=== PATIENT | female | born 1965 | race Caucasian/White ===

== ENCOUNTER 2018-07-24 11:32 | Emergency (ER) | payer OTHER ==
[~2018-07-24] VITALS: Ht 165.1 cm; Wt 61.2 kg
[~2018-07-24 11:32] MED LIST: DOCU-109 PO; FAMO20TA5 PO; MULT-98 PO; OXYC1TAB7 PO; SERT100T PO
[2018-07-24] MEDS ORDERED: IV NORMAL SALINE 1000ML BAG 1,000 ML IV ONE (12:00)
[2018-07-24 12:32] LABS: BASO % 1 % (0-3); EOS # 0.4 x10^3/uL (0.0-0.7); EOS % 8 % (0-3); HEMATOCRIT 35.8 % (36.0-47.0); HEMOGLOBIN 12.1 g/dL (12.0-15.5); LYMPH # 0.9 x10^3/uL (1.0-4.8); LYMPH % 21 % (24-48); MEAN CORPUSCULAR HEMOGLOBIN 34 pg (25-35); MEAN CORPUSCULAR HGB CONC 34 g/dL (31-37); MEAN CORPUSCULAR VOLUME 100 fL (79-100); MONO # 0.4 x10^3/uL (0.0-1.1); MONO % 8 % (0-9); NEUT # 2.7 x10^3uL (1.8-7.7); NEUT % 62 % (31-73); PLATELET COUNT 250 x10^3/uL (140-400); RED CELL DISTRIBUTION WIDTH 13.1 % (11.5-14.5); WHITE BLOOD COUNT 4.4 x10^3/uL (4.0-11.0)
--- NOTE | 2018-07-24 12:39 | PHYS DOC ---
Past Medical History Past Medical History: Depression, Other Additional Past Medical Histor: COLON OBST (MONICA MERCADO TRANSVERSE ABDOMINAL MUSCLE SURGEON) Past Surgical History: Appendectomy, Hysterectomy, Other Additional Past Surgical Histo: COLON RESECTION D/T OBST (MONICA MERCADO APRN) Alcohol Use: Occasionally Drug Use: None (MONICA MERCADO APRN) Adult General Chief Complaint Chief Complaint: ABDOMINAL PAIN HPI HPI Patient is a 52 year old female who presents with status post hysterectomy times one week ago. Hysterectomy was done at and it was laparoscopic. Patient states that she is having some numbness over on the left mid to lower side rib below the umbilicus area and pain with movement. Patient states the pain is an achy kind of pain and she rates her pain a 2 out of 10. She refused any pain medicine this time. Patient denies fever, constipation, diarrhea, vomiting, and nausea, dysuria. (MONICA MERCADO APRN) Review of Systems Review of Systems Constitutional: Denies fever or chills [] Eyes: Denies change in visual acuity, redness, or eye pain [] HENT: Denies nasal congestion or sore throat [] Respiratory: Denies cough or shortness of breath [] Cardiovascular: No additional information not addressed in HPI [] GI: abdominal pain with movement, slight numbness to the left lower side. Denies nausea, vomiting, bloody stools or diarrhea [] : Denies dysuria or hematuria [] Musculoskeletal: Denies back pain or joint pain [] Integument: Denies rash or skin lesions [] Neurologic: Denies headache, focal weakness or sensory changes [] Endocrine: Denies polyuria or polydipsia [] All other systems were reviewed and found to be within normal limits, except as documented in this note. (MONICA MERCADO APRN) Current Medications Current Medications Current Medications Medications (Trade) Dose Ordered Sig/Digna Start Time Stop Time Status Last Admin Dose Admin Info (CONTRAST GIVEN -- Rx MONITORING) 1 each PRN DAILY PRN 07/24/18 13:00 07/24/18 14:35 DC Iohexol (Omnipaque 300 Mg/ml) 75 ml 1X ONCE 07/24/18 12:45 07/24/18 12:46 DC 07/24/18 12:55 75 ML Sodium Chloride 1,000 ml @ 1,000 mls/hr 1X ONCE 07/24/18 12:00 07/24/18 12:59 DC 07/24/18 12:24 1,000 MLS/HR (CHRISTINA MOODY MD) Allergies Allergies Allergies Coded Allergies Type Severity Reaction Last Updated Verified morphine Allergy Severe hives 03/09/18 Yes (CHRISTINA MOODY MD) Physical Exam Physical Exam Constitutional: Well developed, well nourished, no acute distress, non-toxic appearance. [] HENT: Normocephalic, atraumatic, bilateral external ears normal, oropharynx moist, no oral exudates, nose normal. [] Eyes: PERRLA, EOMI, conjunctiva normal, no discharge. [] Neck: Normal range of motion, no tenderness, supple, no stridor. [] Cardiovascular:Heart rate regular rhythm, no murmur [] Lungs & Thorax: Bilateral breath sounds clear to auscultation [] Abdomen: Bowel sounds normal, soft, no tenderness, no masses, no pulsatile masses. [] Skin: Laparoscopic hysterectomy incisions are healed and have no drainage, redness, swelling or signs of infection. Warm, dry, no erythema, no rash. [] Back: No tenderness, no CVA tenderness. [] Extremities: No tenderness, no cyanosis, no clubbing, ROM intact, no edema. [] Neurologic: Alert and oriented X 3, normal motor function, normal sensory function, no focal deficits noted. [] Psychologic: Affect normal, judgement normal, mood normal. [] (MONICA MERCADO APRN) Current Patient Data Vital Signs Vital Signs Date Time Temp Pulse Resp B/P (MAP) Pulse Ox O2 Delivery O2 Flow Rate FiO2 07/24/18 14:00 69 12 124/65 (84) 99 Room Air 07/24/18 11:40 97.5 97.5 (CHRISTINA MOODY MD) Lab Values Laboratory Tests Test 07/24/18 12:15 White Blood Count 4.4 x10^3/uL (4.0-11.0) Red Blood Count 3.60 x10^6/uL (3.50-5.40) Hemoglobin 12.1 g/dL (12.0-15.5) Hematocrit 35.8 % (36.0-47.0) L Mean Corpuscular Volume 100 fL (79-100) Mean Corpuscular Hemoglobin 34 pg (25-35) Mean Corpuscular Hemoglobin Concent 34 g/dL (31-37) Red Cell Distribution Width 13.1 % (11.5-14.5) Platelet Count 250 x10^3/uL (140-400) Neutrophils (%) (Auto) 62 % (31-73) Lymphocytes (%) (Auto) 21 % (24-48) L Monocytes (%) (Auto) 8 % (0-9) Eosinophils (%) (Auto) 8 % (0-3) H Basophils (%) (Auto) 1 % (0-3) Neutrophils # (Auto) 2.7 x10^3uL (1.8-7.7) Lymphocytes # (Auto) 0.9 x10^3/uL (1.0-4.8) L Monocytes # (Auto) 0.4 x10^3/uL (0.0-1.1) Eosinophils # (Auto) 0.4 x10^3/uL (0.0-0.7) Basophils # (Auto) 0.0 x10^3/uL (0.0-0.2) Sodium Level 140 mmol/L (136-145) Potassium Level 4.4 mmol/L (3.5-5.1) Chloride Level 102 mmol/L (98-107) Carbon Dioxide Level 28 mmol/L (21-32) Anion Gap 10 (6-14) Blood Urea Nitrogen 8 mg/dL (7-20) Creatinine 0.9 mg/dL (0.6-1.0) Estimated GFR (Cockcroft-Gault) 66.3 BUN/Creatinine Ratio 9 (6-20) Glucose Level 89 mg/dL (70-99) Calcium Level 9.4 mg/dL (8.5-10.1) Total Bilirubin 0.3 mg/dL (0.2-1.0) Aspartate Amino Transferase (AST) 46 U/L (15-37) H Alanine Aminotransferase (ALT) 36 U/L (14-59) Alkaline Phosphatase 41 U/L (46-116) L Total Protein 7.7 g/dL (6.4-8.2) Albumin 4.1 g/dL (3.4-5.0) Albumin/Globulin Ratio 1.1 (1.0-1.7) Laboratory Tests 2/13/19 12:15 Laboratory Tests 07/24/18 12:15 (CHRISTINA MOODY MD) EKG EKG [] (MONICA MERCADO APRN) Radiology/Procedures Radiology/Procedures CT ABD PELV (MONICA MERCADO APRN) Impressions: [facility] [address] [place] [address] IMAGING REPORT Signed PATIENT: GIFTY LAZARO ACCOUNT: [id number] : 1965 LOCATION: ER AGE: 52 SEX: F EXAM STATUS: REG ER ORD. PHYSICIAN: MONICA MERCADO APRN REASON: staus post hyster with abdominal pain PROCEDURE: CT ABD PELV W/ IV CONTRST ONLY CT ABD PELV W/ IV CONTRST ONLY Indication: LEFT SIDED PELVIC PAIN S/P HYSTERECTOMY 1 WEEK AGO, PRIOR SENT, [id number] 75ML Exposure: One or more of the following individualized dose reduction techniques were utilized for this examination: 1. Automated exposure control 2. Adjustment of the mA and/or kV according to patient size 3. Use of iterative reconstruction technique. Comparison: None are available. Contrast: Intravenous contrast was given. No oral contrast per request. Findings: Lung bases are clear. Tiny subcentimeter liver lesions again seen. There is been development of an area of hypodensity in the posterior right lobe of liver, not seen on prior study. This may represent some focal fatty deposition. There is no evidence of mass effect. Spleen unremarkable. Pancreas unremarkable. Adrenals demonstrate no mass. Kidneys unremarkable. No calcified gallstone. Aorta nonaneurysmal. No evidence of significant lymph node enlargement. No evidence of bowel obstruction. [id number] retained stool in the colon. Small bowel loops are not abnormally dilated but do demonstrate fluid. Mild pelvic ascites measures greater density than simple fluid, 26 Hounsfield units, could indicate hemorrhagic component. The previously seen pelvic mass has been resected with hysterectomy. Urinary bladder is mildly distended and appears unremarkable. Degenerative changes of the spine are again noted. IMPRESSION: 1. Post hysterectomy. 2. Mild pelvic ascites or hemoperitoneum. 3. Development of an area of hypodensity in the posterior right lobe liver, does not demonstrate gross mass effect, may represent a region of fatty infiltration. Could be observed on follow-up CT scan evaluated with MRI. 3. Mild fluid throughout the small bowel loops suggesting an ileus. Electronically signed by: Tj Shay MD (07/24/2018 1:15 PM) [facility] DICTATED and SIGNED BY: TJ SHAY MD DATE: 07/24/18 1304 (MONICA MERCADO APRN) Course & Med Decision Making Course & Med Decision Making Patient is a 52 year old female who presents with status post hysterectomy times one week ago. Hysterectomy was done at and it was laparoscopic. Patient states that she is having some numbness over on the left mid to lower side rib below the umbilicus area and pain with movement. Patient states the pain is an achy kind of pain and she rates her pain a 2 out of 10. She refused any pain medicine this time. Patient denies fever, constipation, diarrhea, vomiting, and nausea, dysuria. Abdomen is soft and nontender. Incisions from laparoscopic are healed together and non-draining and not red and no signs of infection. Vital signs are within normal limits. Abdomen is not distended and there are no masses felt. Patient states she has been having normal bowel movements since the surgery. She states she has eating and drinking without any complete patients. Patient denies fever and she is afebrile. A clear to auscultation in all lobes. Heart rate regular without murmur. Patient has no swelling or edema in her extremities or abdomen area. Patient is told that all of her symptoms are normal for her after her surgery. Patient is told that a CT unnecessary with given symptoms and exam but is asked if she wanted a CT of her abdomen pelvis to make sure there is no complications she stated yes. CT abdomen pelvis shows: 1. Post hysterectomy. 2. Mild pelvic ascites or hemoperitoneum. 3. Development of an area of hypodensity in the posterior right lobe liver, does not demonstrate gross mass effect, may represent a region of fatty infiltration. Could be observed on follow-up CT scan evaluated with MRI. 3. Mild fluid throughout the small bowel loops suggesting an ileus. Electronically signed by: Tj Shay MD (07/24/2018 1:15 PM) [facility] Patient has no symptoms of ileus and she states she has been having normal bowel movements. Abdomen has negative signs for a acute abdomen or an ileus. I have had Dr. Moody look over findings and he states the patient can go home and that this is likely an over read due to patient not having symptoms and having normal bowel movements and no pain, nausea, vomiting or diarrhea. Patient to follow-up with her DAIRY NUTRITIONIST that did her surgery. Patient to return if she begins having intense abdominal pain, nausea, vomiting, abdominal distention or abnormal bowel movements. (MONICA MERCADO APRN) Course & Med Decision Making Staff Physician Addendum: I was working in the ER during the course of this patient's visit. I was available for consultation as needed, but I was not directly involved in the care of this patient. I discussed the CT results with the mid-level appears hemodynamically stable subacute symptoms ever since her surgery. (CHRISTINA MOODY MD) Dragon Disclaimer Dragon Disclaimer This electronic medical record was generated, in whole or in part, using a voice recognition dictation system. (MONICA MERCADO APRN) Departure Departure Impression: Primary Impression: Abdominal pain Additional Impression: Post-operative pain Disposition: HOME, SELF-CARE Condition: STABLE Referrals: MARU PAPPAS MD (PCP) Patient Instructions: Abdominal Pain (Nonspecific) Additional Instructions: Call your DAIRY NUTRITIONIST that performed your surgery and let them know about your symptoms. Return to the ED if he began having nausea, vomiting, intense abdominal pain, abnormal bowel movement or abdominal distention. Drink plenty of fluids. Problem Qualifiers Primary Impression: Abdominal pain Abdominal location: left lower quadrant Qualified Codes: R10.32 - Left lower quadrant pain MONICA MERCADO APRN Jul 24, 2018 12:39 CHRISTINA MOODY MD Jul 25, 2018 09:17
[2018-07-24 12:45] LABS: CALCIUM 9.4 mg/dL (8.5-10.1); CREATININE 0.9 mg/dL (0.6-1.0); GFR 66.3; POTASSIUM 4.4 mmol/L (3.5-5.1)
[2018-07-24] MEDS ORDERED: IOHEXOL 300 MG/ML 100ML VIAL. IV ONE (12:45)
[2018-07-24 12:49] LABS: ALBUMIN 4.1 g/dL (3.4-5.0); ALBUMIN/GLOBULIN RATIO 1.1 (1.0-1.7); TOTAL BILIRUBIN 0.3 mg/dL (0.2-1.0); TOTAL PROTEIN 7.7 g/dL (6.4-8.2)
[2018-07-24] MEDS ORDERED: CONTRAST GIVEN. MC PRN (13:00)
--- NOTE | 2018-07-24 13:18 | RAD ---
CT ABD PELV W/ IV CONTRST ONLY Indication: LEFT SIDED PELVIC PAIN S/P HYSTERECTOMY 1 WEEK AGO, PRIOR SENT, [id number] 75ML Exposure: One or more of the following individualized dose reduction techniques were utilized for this examination: 1. Automated exposure control 2. Adjustment of the mA and/or kV according to patient size 3. Use of iterative reconstruction technique. Comparison: None are available. Contrast: Intravenous contrast was given. No oral contrast per request. Findings: Lung bases are clear. Tiny subcentimeter liver lesions again seen. There is been development of an area of hypodensity in the posterior right lobe of liver, not seen on prior study. This may represent some focal fatty deposition. There is no evidence of mass effect. Spleen unremarkable. Pancreas unremarkable. Adrenals demonstrate no mass. Kidneys unremarkable. No calcified gallstone. Aorta nonaneurysmal. No evidence of significant lymph node enlargement. No evidence of bowel obstruction. [id number] retained stool in the colon. Small bowel loops are not abnormally dilated but do demonstrate fluid. Mild pelvic ascites measures greater density than simple fluid, 26 Hounsfield units, could indicate hemorrhagic component. The previously seen pelvic mass has been resected with hysterectomy. Urinary bladder is mildly distended and appears unremarkable. Degenerative changes of the spine are again noted. IMPRESSION: 1. Post hysterectomy. 2. Mild pelvic ascites or hemoperitoneum. 3. Development of an area of hypodensity in the posterior right lobe liver, does not demonstrate gross mass effect, may represent a region of fatty infiltration. Could be observed on follow-up CT scan evaluated with MRI. 3. Mild fluid throughout the small bowel loops suggesting an ileus. Electronically signed by: Tj Shay MD (07/24/2018 1:15 PM) [facility]
[2018-07-24 14:00] VITALS: BP 124/65
== END 2018-07-24 14:25 | disposition home or self-care (01) ==
LOC: ER 11:32
DX: G89.18 Other acute postprocedural pain (principal); R10.32 Left lower quadrant pain; Z90.710 Acquired absence of both cervix and uterus; Z90.89 Acquired absence of other organs; Z98.890 Other specified postprocedural states; Z88.5 Allergy status to narcotic agent
CPT/HCPCS: 36415; 74177; 80053; 85025; 99284; J7030; Q9967; 96360

== ENCOUNTER 2019-03-31 05:40 | Emergency (ER) | payer OTHER ==
[~2019-03-31] VITALS: Ht 165.1 cm; Wt 61.2 kg
--- NOTE | 2019-03-31 06:17 | PHYS DOC ---
Past Medical History Past Medical History: Depression, Other Additional Past Medical Histor: COLON OBST Past Surgical History: Appendectomy, Hysterectomy, Other Additional Past Surgical Histo: COLON RESECTION D/T OBST Alcohol Use: Occasionally Drug Use: None Adult General Chief Complaint Chief Complaint: PAIN ON URINATION [facility] HPI 53-year-old female presents to emergency department complaints of dysuria, hematuria lightheadedness, nausea. Patient woke approximately 1:30 AM with hematuria and pain with urination. She states she again woke up around 4:30 with similar complaints at that time with large amounts of blood. She developed lightheadedness and subsequently called EMS. Patient denies any flank pain, she complains of suprapubic pain. Denies any vaginal discharge. Patient denies any fever, vomiting. Nothing makes her symptoms worse, nothing his her symptoms bet ter. She denies any chest pain, shortness of breath, headache or visual change. Review of Systems Review of Systems Constitutional: Denies fever or chills [] Respiratory: Denies cough or shortness of breath [] Cardiovascular: No additional information not addressed in HPI [] GI: Denies abdominal pain, + nausea, no vomiting, bloody stools or diarrhea [] : + dysuria Musculoskeletal: Denies back pain or joint pain [] Neurologic: Denies headache, focal weakness or sensory changes [] All other systems were reviewed and found to be within normal limits, except as documented in this note. Current Medications Current Medications Current Medications Medications (Trade) Dose Ordered Sig/Digna Start Time Stop Time Status Last Admin Dose Admin Ceftriaxone Sodium (Rocephin) 1 gm 1X ONCE 03/31/19 08:45 03/31/19 08:48 DC 03/31/19 09:23 1 GM Allergies Allergies Allergies Coded Allergies Type Severity Reaction Last Updated Verified morphine Allergy Severe hives 03/09/18 Yes Physical Exam Physical Exam Constitutional: Well developed, well nourished, no acute distress, non-toxic appearance. [] HENT: Normocephalic, atraumatic, bilateral external ears normal, oropharynx moist, no oral exudates, nose normal. [] Eyes: PERRLA, EOMI, conjunctiva normal, no discharge. [] Cardiovascular:Heart rate regular rhythm, no murmur [] Lungs & Thorax: Bilateral breath sounds clear to auscultation [] Abdomen: Bowel sounds normal, soft, no tenderness, no masses, no pulsatile masses. [] Skin: Warm, dry, no erythema, no rash. [] Back: No tenderness, no CVA tenderness. [] Extremities: No tenderness, no edema. [] Neurologic: Alert and oriented X 3, no focal deficits noted. [] Psychologic: Affect normal, judgement normal, mood normal. [] : no evidence of blood in vaginal vault on exam. + yeast appreciated Current Patient Data Vital Signs Vital Signs Date Time Temp Pulse Resp B/P (MAP) Pulse Ox O2 Delivery O2 Flow Rate FiO2 03/31/19 07:00 80 103/64 (77) 03/31/19 06:30 24 99 Room Air 03/31/19 05:45 98.8 98.8 Lab Values Laboratory Tests Test 03/31/19 07:03 03/31/19 07:13 Urine Collection Type Unknown Urine Color Red Urine Clarity Turbid Urine pH 7.0 Urine Specific [place] 1.015 Urine Protein mg/dL (NEG-TRACE) Urine Glucose (UA) mg/dL (NEG) Urine Ketones (Stick) mg/dL (NEG) Urine Blood Large (NEG) Urine Nitrite (NEG) Urine Bilirubin (NEG) Urine Urobilinogen Dipstick mg/dL (0.2 mg/dL) Urine Leukocyte Esterase (NEG) Urine RBC Tntc /HPF (0-2) Urine WBC 5-10 /HPF (0-4) Urine Bacteria Few /HPF (0-FEW) White Blood Count 10.5 x10^3/uL (4.0-11.0) Red Blood Count 3.65 x10^6/uL (3.50-5.40) Hemoglobin 11.9 g/dL (12.0-15.5) L Hematocrit 35.8 % (36.0-47.0) L Mean Corpuscular Volume 98 fL (79-100) Mean Corpuscular Hemoglobin 33 pg (25-35) Mean Corpuscular Hemoglobin Concent 33 g/dL (31-37) Red Cell Distribution Width 12.9 % (11.5-14.5) Platelet Count 160 x10^3/uL (140-400) Neutrophils (%) (Auto) 90 % (31-73) H Lymphocytes (%) (Auto) 5 % (24-48) L Monocytes (%) (Auto) 5 % (0-9) Eosinophils (%) (Auto) 0 % (0-3) Basophils (%) (Auto) 0 % (0-3) Neutrophils # (Auto) 9.4 x10^3/uL (1.8-7.7) H Lymphocytes # (Auto) 0.5 x10^3/uL (1.0-4.8) L Monocytes # (Auto) 0.5 x10^3/uL (0.0-1.1) Eosinophils # (Auto) 0.0 x10^3/uL (0.0-0.7) Basophils # (Auto) 0.0 x10^3/uL (0.0-0.2) Platelet Estimate Pending Sodium Level 144 mmol/L (136-145) Potassium Level 4.3 mmol/L (3.5-5.1) Chloride Level 104 mmol/L (98-107) Carbon Dioxide Level 26 mmol/L (21-32) Anion Gap 14 (6-14) Blood Urea Nitrogen 9 mg/dL (7-20) Creatinine 0.6 mg/dL (0.6-1.0) Estimated GFR (Cockcroft-Gault) 105.4 BUN/Creatinine Ratio 15 (6-20) Glucose Level 71 mg/dL (70-99) Calcium Level 8.4 mg/dL (8.5-10.1) L Total Bilirubin 0.5 mg/dL (0.2-1.0) Aspartate Amino Transferase (AST) 40 U/L (15-37) H Alanine Aminotransferase (ALT) 40 U/L (14-59) Alkaline Phosphatase 38 U/L (46-116) L Total Protein 7.2 g/dL (6.4-8.2) Albumin 3.7 g/dL (3.4-5.0) Albumin/Globulin Ratio 1.1 (1.0-1.7) Laboratory Tests 03/31/19 07:13 Laboratory Tests 03/31/19 07:13 EKG EKG [] Radiology/Procedures Radiology/Procedures [] Course & Med Decision Making Course & Med Decision Making Pertinent Labs and Imaging studies reviewed. (See chart for details) []53-year-old female presents to emergency department complaints of dysuria, hematuria lightheadedness, nausea. Patient woke approximately 1:30 AM with hematuria and pain with urination. She states she again woke up around 4:30 with similar complaints at that time with large amounts of blood. She developed lightheadedness and subsequently called EMS. Patient denies any flank pain, she complains of suprapubic pain. Denies any vaginal discharge. Patient denies any fever, vomiting. Nothing makes her symptoms worse, nothing his her symptoms better. She denies any chest pain, shortness of breath, headache or visual change. Labs reviewed Patient concerned she may have some blood coming from her vagina - states she has had hysterectomy Plan for pelvic exam - no acute bleeding Plan abx upon discharge with pyridium Dragon Disclaimer Dragon Disclaimer This electronic medical record was generated, in whole or in part, using a voice recognition dictation system. Departure Departure Impression: Primary Impression: UTI (urinary tract infection) Disposition: HOME, SELF-CARE Condition: STABLE Referrals: MARU PAPPAS MD (PCP) Patient Instructions: Urinary Tract Infection, [id number] Additional Instructions: Recommend follow up with PCP 3 - 5 days Return to the ER with worsening symptoms, intractable pain, fever, altered mental status Tylenol/Motrin as needed for pain Take antibiotics as prescribed Scripts Cephalexin (KEFLEX) 500 Mg Capsule 2 CAP PO Q12HR for 7 Days, #28 CAP Prov: RANI MONTAÑO MD 03/31/19 Phenazopyridine Hcl (PYRIDIUM) 100 Mg Tablet 100 MG PO TID for dysuria, #10 TAB Prov: RANI MONTAÑO MD 03/31/19 Problem Qualifiers Primary Impression: UTI (urinary tract infection) Urinary tract infection type: site unspecified Hematuria presence: with hematuria Qualified Codes: N39.0 - Urinary tract infection, site not specified; R31.9 - Hematuria, unspecified RANI MONTAÑO MD Mar 31, 2019 06:17
[2019-03-31 07:20] LABS: CLARITY,URINE TURBID; COLOR,URINE RED
[2019-03-31 07:40] LABS: BASO % 0 % (0-3); EOS % 0 % (0-3); HEMATOCRIT 35.8 % (36.0-47.0); HEMOGLOBIN 11.9 g/dL (12.0-15.5); LYMPH # 0.5 x10^3/uL (1.0-4.8); LYMPH % 5 % (24-48); MEAN CORPUSCULAR HEMOGLOBIN 33 pg (25-35); MEAN CORPUSCULAR HGB CONC 33 g/dL (31-37); MEAN CORPUSCULAR VOLUME 98 fL (79-100); MONO # 0.5 x10^3/uL (0.0-1.1); MONO % 5 % (0-9); NEUT # 9.4 x10^3/uL (1.8-7.7); NEUT % 90 % (31-73); PLATELET COUNT 160 x10^3/uL (140-400); RED BLOOD COUNT 3.65 x10^6/uL (3.50-5.40); RED CELL DISTRIBUTION WIDTH 12.9 % (11.5-14.5); WHITE BLOOD COUNT 10.5 x10^3/uL (4.0-11.0)
[2019-03-31 07:47] LABS: CALCIUM 8.4 mg/dL (8.5-10.1); CREATININE 0.6 mg/dL (0.6-1.0); GFR 105.4; POTASSIUM 4.3 mmol/L (3.5-5.1)
[2019-03-31 07:52] LABS: ALBUMIN 3.7 g/dL (3.4-5.0); ALBUMIN/GLOBULIN RATIO 1.1 (1.0-1.7); TOTAL BILIRUBIN 0.5 mg/dL (0.2-1.0); TOTAL PROTEIN 7.2 g/dL (6.4-8.2)
[2019-03-31 07:52] LABS: BACTERIA,URINE FEW /HPF (0-FEW); RBC,URINE TNTC /HPF (0-2)
[2019-03-31] MEDS ORDERED: cefTRIAXone IV Push 1 GM VIAL. IVP ONE (08:45)
[2019-03-31 09:30] VITALS: BP 102/61
[2019-03-31] MEDS ORDERED: PHEN100T82 PO (09:32)
[2019-03-31] MEDS ORDERED: CEPH-264 PO (09:32)
[2019-03-31 09:53] LABS: % BANDS 5 % (0-9); % BASOS 1 % (0-3); % LYMPHS 4 % (24-48); % MONOS 3 % (0-10); % SEGS 87 % (35-66); PLT ESTIMATE ADEQUATE (ADEQUATE)
== END 2019-03-31 09:57 | disposition home or self-care (01) ==
LOC: ER 05:40
DX: N39.0 Urinary tract infection, site not specified (principal); R42 Dizziness and giddiness; R11.0 Nausea; F32.9 Major depressive disorder, single episode, unspecified; Z90.89 Acquired absence of other organs; Z90.710 Acquired absence of both cervix and uterus; Z88.5 Allergy status to narcotic agent
CPT/HCPCS: 36415; 80053; 81001; 85007; 85025; 87086; 96374; 99284; J0696

== ENCOUNTER 2019-05-10 12:29 | Emergency (ER) | payer OTHER ==
[~2019-05-10] VITALS: Ht 165.1 cm; Wt 57.6 kg
[~2019-05-10 12:29] MED LIST changes: +CEPH-264 PO; +PHEN100T82 PO
[2019-05-10 12:54] VITALS: BP 114/79
[2019-05-10] MEDS ORDERED: KETOROLAC TROMETHAMINE 10 MG TABLET PO STA (13:08)
[2019-05-10] MEDS ORDERED: ONDANSETRON ODT 4 MG TAB.RAPDIS. PO ONE (13:15)
--- NOTE | 2019-05-10 13:15 | PHYS DOC ---
Past Medical History Past Medical History: Depression, Other Additional Past Medical Histor: COLON OBST Past Surgical History: Appendectomy, Hysterectomy, Other Additional Past Surgical Histo: COLON RESECTION D/T OBST Alcohol Use: Occasionally Drug Use: None Adult General Chief Complaint Chief Complaint: FLU SYMPTOM HPI HPI Patient is a 53 year old female who presents with body aches, chills, nausea, cough, congestion has been ongoing since Sunday. The patient's been taking TheraFlu at home has not been helping. The patient is able to keep fluids down but she does feel nauseous. Her son is also been sick with the same symptoms. Review of Systems Review of Systems Constitutional: Reports fever or chills [] Eyes: Denies change in visual acuity, redness, or eye pain [] HENT: Reports nasal congestion and runny nose. Respiratory: Reports cough and shortness of breath [] Cardiovascular: No additional information not addressed in HPI [] GI: Denies abdominal pain, nausea, vomiting, bloody stools or diarrhea [] : Denies dysuria or hematuria [] Musculoskeletal: Denies back pain or joint pain [] Integument: Denies rash or skin lesions [] Neurologic: Denies headache, focal weakness or sensory changes [] Endocrine: Denies polyuria or polydipsia [] Complete systems were reviewed and found to be within normal limits, except as documented in this note. Current Medications Current Medications Current Medications Medications (Trade) Dose Ordered Sig/Digna Start Time Stop Time Status Last Admin Dose Admin Ketorolac Tromethamine (Toradol) 10 mg 1X STAT 05/10/19 13:08 05/10/19 13:11 DC 05/10/19 13:39 10 MG Ondansetron HCl (Zofran Odt) 4 mg 1X ONCE 05/10/19 13:15 05/10/19 13:16 DC 05/10/19 13:39 4 MG Allergies Allergies Allergies Coded Allergies Type Severity Reaction Last Updated Verified morphine Allergy Severe hives 03/09/18 Yes Physical Exam Physical Exam Constitutional: Well developed, well nourished, no acute distress, non-toxic appearance. [] HENT: Normocephalic, atraumatic, bilateral external ears normal, oropharynx moist, no oral exudates, nose turbinates inflamed. Eyes: PERRLA, EOMI, conjunctiva normal, no discharge. [] Neck: Normal range of motion, no tenderness, supple, no stridor. [] Skin: Warm, dry, no erythema, no rash. [] Back: No tenderness, no CVA tenderness. [] Extremities: No tenderness, no cyanosis, no clubbing, ROM intact, no edema. [] Neurologic: Alert and oriented X 3, normal motor function, normal sensory function, no focal deficits noted. [] Psychologic: Affect normal, judgement normal, mood normal. [] Current Patient Data Vital Signs Vital Signs Date Time Temp Pulse Resp B/P (MAP) Pulse Ox O2 Delivery O2 Flow Rate FiO2 05/10/19 12:54 100.9 86 18 114/79 (91) 95 Room Air 100.9 Lab Values Laboratory Tests Test 05/10/19 13:00 Influenza Type A Antigen Negative (NEGATIVE) Influenza Type B Antigen Negative (NEGATIVE) EKG EKG [] Radiology/Procedures Radiology/Procedures [] Course & Med Decision Making Course & Med Decision Making Pertinent Labs and Imaging studies reviewed. (See chart for details) Will get flu test and give supportive care. Flu test is negative. Appears to be a systemic viral illness. Will d/c on nausea medication. Dragon Disclaimer Dragon Disclaimer This electronic medical record was generated, in whole or in part, using a voice recognition dictation system. Departure Departure Impression: Primary Impression: Systemic viral illness Disposition: 01 HOME, SELF-CARE Condition: STABLE Referrals: UNKNOWN PCP NAME (PCP) Patient Instructions: Fever, Adult Additional Instructions: Thank you for visiting [facility]. We appreciate you trusting us with your care. If any additional problems come up don't hesitate to return to visit us. Please follow up with your primary care provider so they can plan additional care if needed and know about the problem that you had. If symptoms worsen come back to the Emergency Department. Any concerning symptoms that start such as chest pain, shortness of air, weakness or numbness on one side of the body, running high fevers or any other concerning symptoms return to the ER. Please fill your medications at any pharmacy and follow the prescription instructions. Please drink plenty of fluids. If you become unable keep fluids down please return to the ER. Scripts Ondansetron (ONDANSETRON ODT) 4 Mg Tab.rapdis 1 TAB PO PRN Q6-8HRS PRN for NAUSEA, #16 TAB Prov: YANEZ,REBEKAH MEAT MOLDER 05/10/19 REBEKAH YANEZ APRN May 10, 2019 13:15
[2019-05-10 13:32] LABS: INFLUENZA A PATIENT NEGATIVE (NEGATIVE); INFLUENZA B PATIENT NEGATIVE (NEGATIVE)
[2019-05-10] MEDS ORDERED: ONDA4TAB12 PO (13:50)
== END 2019-05-10 14:19 | disposition home or self-care (01) ==
LOC: ER 12:29
DX: B34.9 Viral infection, unspecified (principal); Z88.5 Allergy status to narcotic agent
CPT/HCPCS: 87804; 99284; Q0162